=== PATIENT | female | born 1940 | race Asian ===

== ENCOUNTER 2019-03-26 22:04 | Inpatient (IN) | payer MEDICARE ==
[~2019-03-26] VITALS: Ht 149.9 cm; Wt 77.6 kg
[2019-03-26 05:00] VITALS: BP 108/47
[2019-03-26] MEDS ORDERED: PANTOPRAZOLE 40 MG 10ML VIAL IV STA (22:18)
[2019-03-26] MEDS ORDERED: DICYCLOMINE HCL 20 MG/2 ML VIAL IM ONE (22:30)
[2019-03-26 23:24] LABS: BASOPHILS % 0.2 % (0.0-1.0); BILIRUBIN,URINE NEGATIVE (NEGATIVE); CLARITY,URINE CLOUDY (CLEAR); COLOR,URINE YELLOW (YELLOW); EOSINOPHILS # (AUTO) 0.1 (0.0-0.4); EOSINOPHILS % 0.7 % (0.0-6.0); HEMATOCRIT 40.5 % (34.2-44.1); HEMOGLOBIN 13.7 g/dL (12.0-16.0); KETONES,URINE NEGATIVE (NEGATIVE); LYMPHOCYTES # (AUTO) 0.6 (1.0-3.2); LYMPHOCYTES % 6.7 % (18.0-39.1); MEAN CORPUSCULAR HEMOGLOBIN 32.5 pg (28-32); MEAN CORPUSCULAR HGB CONC 33.8 g/dL (31-35); MEAN CORPUSCULAR VOLUME 96.2 fL (81-99); MONOCYTES # (AUTO) 0.2 (0.2-0.8); MONOCYTES % 2.4 % (4.4-11.3); NEUTROPHILS # (AUTO) 7.5 (2.1-6.9); NEUTROPHILS % 89.6 % (38.7-80.0); NITRITE,URINE NEGATIVE (NEGATIVE); PLATELET COUNT 198 x10e3/uL (140-360); RED BLOOD COUNT 4.21 x10e6/uL (3.6-5.1); RED CELL DISTRIBUTION WIDTH 12.7 % (11.7-14.4); URINE UROBILINOGEN 0.2 mg/dL (0.2 - 1)
[2019-03-26 23:28] LABS: LEUKOCYTE ESTERASE ,URINE SMALL (NEGATIVE); PROTEIN,URINE DIPSTICK 3+ (NEGATIVE)
[2019-03-26 23:29] LABS: BACTERIA,URINE MANY /HPF; EPITHELIAL CELLS,URINE FEW /LPF
[2019-03-26 23:41] LABS: ALANINE AMINOTRANSFERASE 15 IU/L (0-55); ALBUMIN 3.4 g/dL (3.5-5.0); ALBUMIN/GLOBULIN RATIO 1.1 (0.8-2.0); ALKALINE PHOSPHATASE 62 IU/L (40-150); AMYLASE 71 U/L (25-125); ANION GAP 13.8 mmol/L (8-16); BLOOD UREA NITROGEN 17 mg/dL (7-26); BUN/CREATININE RATIO 19 (6-25); CALCIUM 9.5 mg/dL (8.4-10.2); CARBON DIOXIDE 25 mmol/L (22-29); CHLORIDE 99 mmol/L (98-107); CREATINE KINASE 68 IU/L (29-168); CREATININE, SERUM 0.88 mg/dL (0.57-1.11); EST GLOMERULAR FILTRATION RATE > 60 ML/MIN (60-); GLUCOSE 104 mg/dL (74-118); LIPASE 32 U/L (8-78); POTASSIUM 3.8 mmol/L (3.5-5.1); SODIUM 134 mmol/L (136-145)
--- NOTE | 2019-03-26 23:42 | Diagnostic Imaging Report ---
EXAMINATION: CHEST SINGLE (PORTABLE) INDICATION: ^ruq pain ^[id number] ^2318 ^Y COMPARISON: None FINDINGS: AP view TUBES and LINES: None. LUNGS: Lungs are well inflated. Central vascular congestion. Left basilar opacity dilatation. PLEURA: No pneumothorax. HEART AND MEDIASTINUM: The cardiomediastinal silhouette is enlarged on this AP view. BONES AND SOFT TISSUES: No acute osseous lesion. Soft tissues are unremarkable. UPPER ABDOMEN: No free air under the diaphragm. IMPRESSION: Central vascular congestion. Left basilar opacification, representing small effusion/atelectasis and/or pneumonia in the appropriate clinical context. Signed by: Dr. Jose M Elizabeth MD on 03/26/2019 11:39 PM
[2019-03-26 23:50] LABS: CREATINE KINASE MB < 1.00 ng/mL (0-4.3)
[2019-03-27] MEDS ORDERED: SODIUM CHLORIDE 0.9% 1000ML 1,000 ML IV SCH (01:00)
[2019-03-27] MEDS ORDERED: SODIUM CHLORIDE 0.9% 1000ML 1,000 ML IV ONE (01:45)
--- NOTE | 2019-03-27 02:42 | Diagnostic Imaging Report ---
EXAM: CT Abdomen and Pelvis WITH contrast INDICATION: ^ABD PAIN ^[id number] ^0138 ^Y COMPARISON: None. TECHNIQUE: Abdomen and pelvis were scanned utilizing a multidetector helical scanner from the lung base to the pubic symphysis after administration of IV contrast. Coronal and sagittal reformations were obtained. Dose modulation, iterative reconstruction, and/or weight based adjustment of the mA/kV was utilized to reduce the radiation dose to as low as reasonably achievable. Routine protocol was performed. Scan was performed when during portal venous phase. IV CONTRAST: 100 mL of Isovue-370 ORAL CONTRAST: None. COMPLICATIONS: None RADIATION DOSE: Total DLP: 376.15 mGy*cm Estimated effective dose: (DLP x 0.015 x size factor) mSv CTDIvol has been reviewed. It is below the limits set by the Radiation Protocol Committee (RPC). FINDINGS: LINES and TUBES: None. LOWER THORAX: Mild bibasilar atelectasis. HEPATOBILIARY: No focal hepatic lesions. No biliary ductal dilation. GALLBLADDER: No radio-opaque stones or sludge. No wall thickening. SPLEEN: No splenomegaly. PANCREAS: No focal masses or ductal dilatation. ADRENALS: No adrenal nodules KIDNEYS/URETERS: Kidneys enhance symmetrically. No hydronephrosis. No cystic or solid mass lesions. Bilateral subcentimeter hypodensities are too small to characterize. No stones. GI TRACT: No abnormal distention or evidence of bowel obstruction. Left lower quadrants diverticulitis with adjacent extraluminal air. Appendix is normal. Increased amount of air adjacent to the third and fourth portion of the duodenum (series 2, image 28). PELVIC ORGANS/BLADDER: Unremarkable. LYMPH NODES: No lymphadenopathy. VESSELS: Unremarkable. PERITONEUM / RETROPERITONEUM: No free air. Pneumoperitoneum, which is more in the upper abdomen than around the colon. BONES: L4-L5 degenerative changes. SOFT TISSUES: Unremarkable. IMPRESSION: 1. Perforated diverticulitis. 2. More pronounced upper abdominal free air, raises the possibility of another concomitant process such as perforated distal duodenal ulcer. Findings discussed with Dr. Oliver at 2:30 AM, on 04/08/2019. Signed by: Dr. Jose M Elizabeth MD on 03/27/2019 2:38 AM
[2019-03-27 02:46] LABS: INR 0.87; PROTHROMBIN TIME 12.3 seconds (11.9-14.5)
[2019-03-27 02:47] LABS: PARTIAL THROMBOPLASTIN TIME 28.7 seconds (23.8-35.5)
[2019-03-27] MEDS ORDERED: ONDANSETRON HCL INJ 2MG/ML 2ML 2 MG/ML VIAL IV PRN (03:00)
[2019-03-27] MEDS ORDERED: MORPHINE SULFATE INJ 4 MG/ML INJ 1ML IV PRN (03:00)
--- OUTSIDE RECORDS SUMMARY | 2019-03-27 03:07 | XMS REPORT ---
Author [facility] Address Unknown Phone Unavailable Care Team Providers Care Quarantine Officer Name Role Phone David AGUAYO Unavailable Unavailable Problems This patient has no known problems. Allergies, Adverse Reactions, Alerts This patient has no known allergies or adverse reactions. Medications This patient has no known medications. Results Test Description Test Time Test Comments Text Results Atomic Results Result Comments CT ABDOMEN/PELVIS W 2019-03-27 02:27:00 [facility] [address], [place] [address] Patient Name: LENIN PLAZA MR #: [id number] : 1940 Age/Sex: 78/F Req #: [id number] Adm Physician: Ordered by: CORTEZ AGUAYO MD Report #: [id number] Location: ER Room/Bed: Procedure: [id number] CT/CT ABDOMEN/PELVIS W Exam Date: 03/27/19 Exam Time: 137 REPORT STATUS: Signed EXAM: CT Abdomen and Pelvis WITH contrast INDICA TION: ABD PAIN [id number] Y COMPARISON: None. TECHNIQUE: Abdomen and pelvis were scanned utilizing a multidetector helical scanner from the lung base to the pubic symphysis after administration of IV contrast. Coronal and sagittal reformations were obtained. Dose modulation, iterative reconstruction, and/or weight based adjustment of the mA/kV was utilized to reduce the radiation dose to as low as reasonably achievable. Routine protocol was performed. Scan was performed when during portal venous phase. IV CONTRAST: 100 mL of Isovue-370 ORAL CONTRAST: None. COMPLICATIONS: None RADIATION DOSE: Total DLP: 376.15 mGy*cm Estimated effective dose: (DLP x 0.015 x size factor) mSv CTDIvol has been reviewed. It is below the limits set by the Radiation Protocol Committee (RPC). FINDINGS: LINES and TUBES: None. LOWER THORAX: Mild bibasilar atelectasis. HEPATOBILIARY: No focal hepatic lesions. No biliary ductal dilation. GALLBLADDER: No radio-opaque stones or sludge. No wall thickening. SPLEEN: No splenomegaly. PANCREAS: No focal masses or ductal dilatation. ADRENALS: No adrenal nodules KIDNEYS/URETERS: Kidneys enhance symmetrically. No hydronephrosis. No cystic or solid mass lesions. Bilateral subcentimeter hypodensities are too small to characterize. No stones. GI TRACT: No abnormal distention or evidence of bowel obstruction. Left lower quadrants diverticulitis with adjacent extraluminal air. Appendix is normal. Increased amount of air adjacent to the third and fourth portion of the duodenum (series 2, image 28). PELVIC ORGANS/BLADDER: Unremarkable. LYMPH NODES: No lymphadenopathy. VESSELS: Unremarkable. PERITONEUM / RETROPERITONEUM: No free air. Pneumoperitoneum, which is more in the upper abdomen than around the colon. BONES: L4-L5 degenerative changes. SOFT TISSUES: Unremarkable. IMPRESSION: 1. Perforated diverticulitis. 2. More pronounced upper abdominal free air, raises the possibility of another concomitant process such as perforated distal duodenal ulcer. Findings discussed with Dr. Aguayo at 2:30 AM, on 04/08/2019. Signed by: Dr. Jose M Kasper MD on 03/27/2019 2:38 AM Dictated By: JOSE M KASPER MD 7 Transcribed By: MOUSTAPHA on 03/27/19237 COPY TO: CORTEZ AGUAYO MD CHEST SINGLE (PORTABLE) 2019-03-26 23:37:00 [place] [address] Patient Name: LENIN PLAZA MR #: [id number] : 1940 Age/Sex: 78/F Req #: [id number] Adm Physician: Ordered by: CORTEZ AGUAYO MD Report #: [id number] Location: ER Room/Bed: Procedure: [id number] DX/CHEST SINGLE (PORTABLE) Exam Date: 03/26/19 Exam Time: 2317 REPORT STATUS: Signed EXAMINATION: CHEST SINGLE (PORTABLE) I NDICATION: ruq pain [id number] Y COMPARISON: None FINDINGS: AP view TUBES and LINES: None. LUNGS: Lungs are well inflated. Central vascular congestion. Left basilar opacity dilatation. PLEURA: No pneumothorax. HEART AND MEDIASTINUM: The cardiomediastinal silhouette is enlarged on this AP view. BONES AND SOFT TISSUES: No acute osseous lesion. Soft tissues are unremarkable. UPPER ABDOMEN: No free air under the diaphragm. IMPRESSION: Central vascular congestion. Left basilar opacification, representing small effusion/atelectasis and/or pneumonia in the appropriate clinical context. Signed by: Dr. Jose M Kasper MD on 03/26/2019 11:39 PM Dictated By: JOSE M KASPER MD Transcribed By: MOUSTAPHA on 03/26/192338 COPY TO: CORTEZ AGUAYO MD
[2019-03-27] MEDS ORDERED: PIPER-TAZ 3.375 GM 50 ML IV SCH ×2 (03:15→12:00)
[2019-03-27] MEDS ORDERED: METRONIDAZOLE 500MG/NS 100ML 100 ML IV SCH (03:15)
[2019-03-27] MEDS: SODIUM CHLORIDE 0.9% 1000ML 1,000 ML IV SCH ×4 (03:34→22:58)
[2019-03-27] MEDS ORDERED: ACETAMINOPHEN 1000 MG/100 ML IV PRN (04:30)
--- NOTE | 2019-03-27 04:50 | NUR ---
Pt received to [place] [id number]. Daughter with pt. Personal possessions with the daughter. Pt/ daughter oriented to room, call light, plan of care, etc. No current complication noted. Pt is a/o x3, states no nausea, the pain is decreased and tolerable at this time. Pt is NPO as Dr Ha has been notified by ER of consult. Will monitor.
[2019-03-27] MEDS ORDERED: IOPAMIDOL 370 MG/ML 200 ML INFUS..BTL INJ ONE (06:29)
[2019-03-27] MEDS ORDERED: SODIUM CHLORIDE 0.9% 50ML 50 ML ONE (06:29)
[2019-03-27 06:45] LABS: BASOPHILS % 0.1 % (0.0-1.0); HEMATOCRIT 35.4 % (34.2-44.1); HEMOGLOBIN 11.8 g/dL (12.0-16.0); LYMPHOCYTES # (AUTO) 0.6 (1.0-3.2); LYMPHOCYTES % 5.6 % (18.0-39.1); MEAN CORPUSCULAR HEMOGLOBIN 32.3 pg (28-32); MEAN CORPUSCULAR HGB CONC 33.3 g/dL (31-35); MONOCYTES # (AUTO) 0.3 (0.2-0.8); MONOCYTES % 2.7 % (4.4-11.3); NEUTROPHILS % 91.1 % (38.7-80.0); PLATELET COUNT 197 x10e3/uL (140-360); RED BLOOD COUNT 3.65 x10e6/uL (3.6-5.1); RED CELL DISTRIBUTION WIDTH 12.9 % (11.7-14.4)
[2019-03-27 07:10] VITALS: BP 94/44
--- NOTE | 2019-03-27 07:20 | NUR ---
Pt received resting in bed. Alert and oriented x4. Admission assessment done. Emotional support given. Pt is NPO due to diagnosis. Oriented to staff and surroundings. Encouraged to press call perales if help needed. Emotional support given. Will monitor
--- NOTE | 2019-03-27 09:40 | NUR ---
Pt taken off unit for Abdominal series
--- NOTE | 2019-03-27 10:20 | NUR ---
Pt returned from Abd series. Will monitor
[2019-03-27] MEDS: PIPER-TAZ 3.375 GM 50 ML IV SCH ×3 (10:24→16:30)
[2019-03-27] MEDS: METRONIDAZOLE 500MG/NS 100ML 100 ML IV SCH ×3 (10:24→22:00)
--- NOTE | 2019-03-27 10:25 | Diagnostic Imaging Report ---
EXAM: Abdomen 3 Views INDICATION: ^perforated sig diverticulitis ^[id number] ^0958 ^Y COMPARISON: CT abdomen and pelvis 03/27/2019 FINDINGS: Lines/tubes: None. Mild of stool in the colon. No dilated loops of small bowel. Curvilinear lucency through the left L4 vertebral body may correlate with a free air noted on earlier CT abdomen and pelvis. No renal calculi. No abnormal soft tissue masses. Moderate degenerative changes in the lumbar spine and pelvis. Retained contrast in the urinary bladder. IMPRESSION: 1. Possible residual mild free air in the left lower quadrant. 2. Nonobstructive bowel gas pattern. Signed by: Dr. Bibiana Zepeda M.D. on 03/27/2019 10:22 AM
--- NOTE | 2019-03-27 10:45 | NUR ---
Pt taken for CT abdomen
[2019-03-27] MEDS ORDERED: DIATRIZOATE MEGL/DIATRIZOA SOD 30 ML BTL PO ONE (11:00)
--- NOTE | 2019-03-27 11:31 | Consultation ---
DATE OF CONSULTATION: 03/27/2019 REASON FOR CONSULTATION: Perforated sigmoid diverticulitis. HISTORY OF PRESENT ILLNESS: The patient is a pleasant 78-year-old female, who speaks limited Tajik, is not a very good historian, who came to the emergency room yesterday because she had developed severe abdominal pain that had developed after eating dinner last night. Because of the above, she came to the emergency room. The patient had been having on and off abdominal pains which were described as localized in the mid abdominal area and associated with ingestion of foods. She was evaluated by her primary care physician, Dr. Wall, who apparently ordered an ultrasound of the right upper quadrant that revealed some gallbladder polyps. The patient also complained of some milky looking urine. While in the emergency room, the patient had a CT scan of the abdomen that revealed a perforated sigmoid diverticulitis with air in the right upper quadrant raising the possibility of a perforated gastroduodenal ulcer. The patient has difficulty localizing the pain. She sort of describes it as being diffuse. There has been no vomiting. No diarrhea. PAST MEDICAL HISTORY: Significant for arthritis. She is taking meloxicam. She has high blood pressure. She does not know the name of blood pressure medicine. She denies any abdominal surgery. FAMILY HISTORY: Noncontributory. ALLERGIES: SHE HAS NO KNOWN ALLERGIES. REVIEW OF SYSTEMS: Significant for what has been stated. PHYSICAL EXAMINATION: GENERAL: Reveals a 78-year-old oriental female, lying in bed. She is in no acute distress. VITAL SIGNS: Blood pressure is 94/44, pulse is 67, and temperature 99. HEAD, HEAD, EYES, EARS, NOSE, AND THROAT: Reveals no acute process. LUNGS: Clear. HEART: Reveals a regular sinus rhythm. ABDOMEN: Reveals a soft abdomen with diffuse tenderness. Plus or minus rebound, but no guarding. Bowel sounds are present in all four quadrants. EXTREMITIES: Reveal no clubbing, cyanosis, or edema. IMPRESSION: Perforated sigmoid diverticulitis with a questionable perforation of the gastric or duodenal ulcer as a differential diagnosis. The plan is to repeat a CT scan of the abdomen and pelvis with oral Gastrografin enema to try to further evaluate the possibility of a gastric or duodenal perforation. This morning she had an abdominal acute series that revealed possibly a small amount of air in the left lower quadrant consistent with the impression by CT of the diverticulitis. The patient has also been hydrated and given intravenous antibiotics with Zosyn and Flagyl. We will be carefully following the patient up for the need of laparotomy. This has been discussed with her and her daughter and they both agree. The history was taken with her daughter at bedside also. MD REKHA Ward/YANDEL /[id number]
[2019-03-27 11:55] VITALS: BP 101/63
--- NOTE | 2019-03-27 12:20 | NUR ---
Pt returned from CT scan
[2019-03-27 12:28] LABS: BILIRUBIN,URINE NEGATIVE (NEGATIVE); COLOR,URINE YELLOW (YELLOW); KETONES,URINE NEGATIVE (NEGATIVE); LEUKOCYTE ESTERASE ,URINE NEGATIVE (NEGATIVE); NITRITE,URINE NEGATIVE (NEGATIVE); PROTEIN,URINE DIPSTICK 2+ (NEGATIVE); URINE UROBILINOGEN 0.2 mg/dL (0.2 - 1)
[2019-03-27 12:35] LABS: CLARITY,URINE HAZY (CLEAR)
[2019-03-27 12:40] LABS: BACTERIA,URINE FEW /HPF; EPITHELIAL CELLS,URINE FEW /LPF; RBC,URINE >50 /HPF (0-5); WBC,URINE (MAN) 0-5 /HPF (0-5)
[2019-03-27 12:41] LABS: MUCUS,URINE FEW (RARE)
--- NOTE | 2019-03-27 12:54 | Diagnostic Imaging Report ---
EXAM: CT Abdomen and Pelvis WITHOUT contrast INDICATION: ^perf appy r/o per duodenal ulcer ^[id number] ^1158 ^Y COMPARISON: None. TECHNIQUE: Abdomen and pelvis were scanned utilizing a multidetector helical scanner from the lung base to the pubic symphysis without administration of IV contrast. Absence of intravenous contrast decreases sensitivity for detection of focal lesions and vascular pathology. Coronal and sagittal reformations were obtained. Routine protocol was performed. IV CONTRAST: None. ORAL CONTRAST: Gastrografin RADIATION DOSE: Total DLP: 521.5 mGy*cm Estimated effective dose: (DLP x 0.015 x size factor) mSv COMPLICATIONS: None FINDINGS: LINES and TUBES: None. LOWER THORAX: Mild scarring in the lingula and left lower lobe. HEPATOBILIARY: No focal hepatic lesions. No biliary ductal dilation. GALLBLADDER: No radio-opaque stones or sludge. No wall thickening. SPLEEN: No splenomegaly. PANCREAS: There is hypodensity of the pancreatic head with surrounding mild fat stranding which may reflect inflammatory changes from adjacent inflammation of the duodenum. ADRENALS: No adrenal nodules KIDNEYS/URETERS: No hydronephrosis. No cystic or solid mass lesions. No stones. GI TRACT: Diffuse wall thickening of the stomach may be overestimated by poor distention, unchanged. Interval decrease in size of the multiple foci of free air. Few foci are still present in the right upper quadrant and left flank. Diffuse wall thickening of the duodenum and multiple loops of small bowel, which are mildly distended and suggestive of ileus. No abscess or free fluid. Extensive diverticulosis throughout the sigmoid colon. Interval development of diffuse wall thickening of the cecum and distal ascending colon. Short air-filled tubular structure in the right lower quadrant arising from the cecum, which appears to represent a short appendix versus a large diverticulum on series 2, images 41 and 42. PELVIC ORGANS/BLADDER: Unremarkable. LYMPH NODES: No lymphadenopathy. VESSELS: Unremarkable. PERITONEUM / RETROPERITONEUM: Residual few foci of free air in the left flank and right upper quadrant. BONES: Moderate degenerative changes at L4-L5. SOFT TISSUES: Unremarkable. IMPRESSION: 1. Interval decreased amount of free air in the abdomen with residual few foci of free air in the right upper quadrant and left flank still present. 2. Diffuse inflammatory changes involving multiple loops of small bowel and ascending colon. No bowel obstruction. 3. Ill-defined hypodensity in the pancreatic head may relate to inflammation. 4. No drainable fluid collections or abscesses. Signed by: Dr. Bibiana Zepeda M.D. on 03/27/2019 12:51 PM
[2019-03-27] MEDS ORDERED: PANTOPRAZOL 40MG/SOD CHL 0.9% 50 ML IV SCH (14:00)
[2019-03-27 16:00] VITALS: BP 91/43
--- NOTE | 2019-03-27 17:30 | NUR ---
All meds given as ordered. Call pearles within reach. Will monitor
[2019-03-27 18:00] VITALS: BP 102/50
[2019-03-27 19:47] VITALS: BP 102/50
[2019-03-27 19:54] VITALS: BP 93/56
--- NOTE | 2019-03-27 20:53 | History and Physical ---
CHIEF COMPLAINT: Worsening abdominal pain. HISTORY OF PRESENT ILLNESS: This is a 78-year-old Lithuanian woman who presents to [facility] with sudden onset of intense lower abdominal pain. In the emergency room, the patient was found to have a white blood cell count 8400 with 89% segmented neutrophils. The patient's urine also revealed cloudy yellow urine, 3+ protein, 11-20 red blood cells per high-power field, 6-10 white blood cells per high-power field, and many bacteria. The patient is found to have BUN and creatinine of 17 and 0.88 respectively. The patient's amylase, lipase were normal at 71, 32 respectively. The patient underwent a CT of the abdomen and pelvis in the emergency room because right before discharge, she experienced episode of hypotension. The CT of the abdomen and pelvis revealed a perforated diverticulitis with evidence of upper abdominal free air. The patient was thus admitted for further evaluation and treatment. The adult daughter states over the last two months, the patient has had recurrent urinary tract infections. In fact, at times, her urine has been whitish in color with obvious sediment. The patient also has difficulty in voiding according to her daughter. The patient at times has difficulty initiating urination and completely emptying her bladder. REVIEW OF SYSTEMS: GENERAL: She lost 10 pounds in last two months. She has had intermittent fever, chills. HEENT: No headaches. No vision changes. CARDIOVASCULAR/RESPIRATORY: No chest pain or cough. GI: No nausea, vomiting, or diarrhea with intense lower abdominal pain which began yesterday. : Recurrent urinary tract infections as well as white colored urine with obvious sediment last two months according to adult daughter. Neuromuscular no limb weakness or numbness. No known drug allergies. Past history hypertension. SOCIAL HISTORY: This woman is a , lives alone. Her adult daughter lives nearby and visits her frequently. The patient smokes tobacco. Denies alcohol use. FAMILY HISTORY: Noncontributory with the patient's mother is still living, is [id number]. PAST SURGICAL HISTORY: 1. Cataract surgery. 2. Bilateral lower leg venous ablation. 3. Left breast lumpectomy (benign). HOME MEDICATIONS: 1. Losartan daily. 2. Meloxicam as needed for arthritic pain. PHYSICAL EXAMINATION: GENERAL: She is awake, alert, fluent, in no distress, very pleasant. The patient speaks minimal Tanzanian per daughter, who is at bedside. VITAL SIGNS: Height 4 feet 11 inches, weight 160 pounds, BMI 32. Blood pressure is 100/60, pulse 64, respiratory rate 16, temperature 98.1. Temperature last night got as high as 99.6, oxygen saturation 99% on room air. INTEGUMENT: Skin is warm and dry. No pallor, jaundice, or diaphoresis. HEENT: Anicteric sclerae. Moist mucous membranes. CARDIOVASCULAR: Regular rate and rhythm. LUNGS: No rales. No rhonchi or wheezes. ABDOMEN: Soft. She has exquisite tenderness in the right lower quadrant area. She actually has guarding. She also has tenderness in the right upper quadrant. Negative Can sign. EXTREMITIES: No deformity. NEUROLOGIC: Intact. DIAGNOSES: 1. Perforated sigmoid diverticulitis, likely. 2. Urinary tract infection. 3. Hypertensive heart disease. PLAN: 1. We will stop all NSAIDs. 2. Nothing by mouth. 3. Intravenous fluids. 4. Intravenous antibiotics. 5. I appreciate General surgery's input. I agree with repeating the CT of the abdomen pelvis to see if the free air in the abdomen is worsening. I spent 35 minutes in the care of this patient. MD RAVINDER Bajwa/YANDEL /[id number] MTDD
--- NOTE | 2019-03-27 21:28 | NUR ---
RECEIVED PT IN BED AOX3 .RESPIRATIONS ARE EVEN AND UNLABORED .DENIES ABD PAIN NOW LEFT AC 20G PT IS GETTING NS AT150 C/HR .FAMILY AT THE BEDSIDE CALL LIGHT WITH IN REACH .CONTINUE TO MONITOR .
[2019-03-28] VITALS: BP 111/54
[2019-03-28 00:43] VITALS: BP 111/54
[2019-03-28] MEDS: PANTOPRAZOL 40MG/SOD CHL 0.9% 50 ML IV SCH ×5 (02:30→22:00)
[2019-03-28 04:00] VITALS: BP 104/48
[2019-03-28] MEDS: METRONIDAZOLE 500MG/NS 100ML 100 ML IV SCH ×4 (04:04→22:00)
[2019-03-28 05:03] LABS: BASOPHILS % 0.1 % (0.0-1.0); EOSINOPHILS % 0.1 % (0.0-6.0); HEMATOCRIT 32.9 % (34.2-44.1); HEMOGLOBIN 10.9 g/dL (12.0-16.0); LYMPHOCYTES # (AUTO) 0.6 (1.0-3.2); LYMPHOCYTES % 6.8 % (18.0-39.1); MEAN CORPUSCULAR HEMOGLOBIN 32.5 pg (28-32); MEAN CORPUSCULAR HGB CONC 33.1 g/dL (31-35); MEAN CORPUSCULAR VOLUME 98.2 fL (81-99); MONOCYTES # (AUTO) 0.2 (0.2-0.8); MONOCYTES % 2.2 % (4.4-11.3); NEUTROPHILS # (AUTO) 8.1 (2.1-6.9); NEUTROPHILS % 90.6 % (38.7-80.0); PLATELET COUNT 168 x10e3/uL (140-360); RED BLOOD COUNT 3.35 x10e6/uL (3.6-5.1); RED CELL DISTRIBUTION WIDTH 13.2 % (11.7-14.4)
[2019-03-28 05:21] LABS: ALANINE AMINOTRANSFERASE 16 IU/L (0-55); ALBUMIN 2.5 g/dL (3.5-5.0); ALBUMIN/GLOBULIN RATIO 1.1 (0.8-2.0); ALKALINE PHOSPHATASE 42 IU/L (40-150); ANION GAP 8.4 mmol/L (8-16); BLOOD UREA NITROGEN 9 mg/dL (7-26); BUN/CREATININE RATIO 13 (6-25); CALCIUM 8.1 mg/dL (8.4-10.2); CARBON DIOXIDE 21 mmol/L (22-29); CHLORIDE 113 mmol/L (98-107); CREATININE, SERUM 0.68 mg/dL (0.57-1.11); EST GLOMERULAR FILTRATION RATE > 60 ML/MIN (60-); GLUCOSE 90 mg/dL (74-118); POTASSIUM 3.4 mmol/L (3.5-5.1); SODIUM 139 mmol/L (136-145)
[2019-03-28 05:33] LABS: AMYLASE 39 U/L (25-125); LIPASE 16 U/L (8-78)
[2019-03-28] MEDS: SODIUM CHLORIDE 0.9% 1000ML 1,000 ML IV SCH (06:32)
[2019-03-28] MEDS: PIPER-TAZ 3.375 GM 50 ML IV SCH ×4 (06:32→18:00)
--- NOTE | 2019-03-28 06:33 | NUR ---
PT RESTED DURING THE NIGHT DENIES PAIN .PT HAD 2XBM .CALL LIGHT WITH IN REACH.CONTINUE TO MONITOR
--- NOTE | 2019-03-28 07:19 | NUR ---
REPORT GIVEN TO THE ONCOMING NURSE
[2019-03-28 07:20] VITALS: BP 101/44
--- NOTE | 2019-03-28 07:20 | NUR ---
Pt received s/p Abdominal series. Emotional support given. Assisted with care. Oriented to staff and surroundings. Will monitor
--- NOTE | 2019-03-28 07:21 | Diagnostic Imaging Report ---
EXAM: Abdomen and chest 3 radiographs INDICATION: ^fu pneumoperitoneum COMPARISON: KUB and CT dated 03/27/2019 FINDINGS: Limited by body habitus. Dilated small bowel loops are seen in the upper abdomen. No definite radiographic evidence of pneumoperitoneum. Degenerative changes of spine. Left lung base hazy opacification, representing small effusion/atelectasis and/or pneumonia. IMPRESSION: 1. Gaseous distention of few small bowel loops in the upper abdomen is nonspecific, however early/developing obstruction cannot be entirely excluded. 2. No definite radiographic evidence of pneumoperitoneum. 3. Left lung base hazy opacification, representing small effusion/atelectasis and/or pneumonia. Signed by: Dr. Jose M Elizabeth MD on 03/28/2019 7:18 AM
--- NOTE | 2019-03-28 09:00 | NUR ---
Meds given as ordered. Emotional support given. Vitals stable. Will monitor
[2019-03-28] MEDS ORDERED: BISACODYL 10 MG SUPP PR NR (11:45)
[2019-03-28] MEDS: KCL 20MEQ/.9 SOD CHL 1,000 ML IV SCH ×2 (13:30→22:00)
[2019-03-28 16:20] VITALS: BP 115/56
--- NOTE | 2019-03-28 19:28 | NUR ---
Awaiting call back from Dr Shagufta hyde orders. Spoke with Moises with answering service
--- NOTE | 2019-03-28 19:47 | NUR ---
Return call from Dr Eagle: patient can be downgraded to med/surg
[2019-03-28 20:00] VITALS: BP 113/54
[2019-03-29] VITALS (7 sets, daily range): BP systolic 103–126; BP diastolic 53–59
--- NOTE | 2019-03-29 02:24 | NUR ---
Report given to Elly Soto RN. Patient stable, A&Ox3. No issues or concerns. Call light within reach.
[2019-03-29] MEDS: PIPER-TAZ 3.375 GM 50 ML IV SCH ×4 (02:27→17:10)
[2019-03-29] MEDS: PANTOPRAZOL 40MG/SOD CHL 0.9% 50 ML IV SCH ×4 (03:17→21:15)
[2019-03-29] MEDS: METRONIDAZOLE 500MG/NS 100ML 100 ML IV SCH ×4 (03:55→21:18)
[2019-03-29 06:18] LABS: BASOPHILS % 0.2 % (0.0-1.0); EOSINOPHILS % 0.2 % (0.0-6.0); HEMATOCRIT 33.9 % (34.2-44.1); HEMOGLOBIN 11.2 g/dL (12.0-16.0); LYMPHOCYTES # (AUTO) 0.7 (1.0-3.2); LYMPHOCYTES % 8.4 % (18.0-39.1); MEAN CORPUSCULAR HEMOGLOBIN 31.9 pg (28-32); MEAN CORPUSCULAR VOLUME 96.6 fL (81-99); MONOCYTES # (AUTO) 0.3 (0.2-0.8); NEUTROPHILS # (AUTO) 7.1 (2.1-6.9); NEUTROPHILS % 86.8 % (38.7-80.0); PLATELET COUNT 204 x10e3/uL (140-360); RED BLOOD COUNT 3.51 x10e6/uL (3.6-5.1); RED CELL DISTRIBUTION WIDTH 13.1 % (11.7-14.4)
[2019-03-29 06:46] LABS: ANION GAP 11.7 mmol/L (8-16); BLOOD UREA NITROGEN 11 mg/dL (7-26); BUN/CREATININE RATIO 15 (6-25); CALCIUM 8.2 mg/dL (8.4-10.2); CARBON DIOXIDE 17 mmol/L (22-29); CHLORIDE 114 mmol/L (98-107); CREATININE, SERUM 0.71 mg/dL (0.57-1.11); EST GLOMERULAR FILTRATION RATE > 60 ML/MIN (60-); GLUCOSE 65 mg/dL (74-118); MAGNESIUM 1.9 MG/DL (1.3-2.1); POTASSIUM 3.7 mmol/L (3.5-5.1); SODIUM 139 mmol/L (136-145)
[2019-03-29 06:47] LABS: ALANINE AMINOTRANSFERASE 15 IU/L (0-55); ALBUMIN 2.5 g/dL (3.5-5.0); ALBUMIN/GLOBULIN RATIO 0.9 (0.8-2.0); ALKALINE PHOSPHATASE 50 IU/L (40-150); ANION GAP 10.7 mmol/L (8-16); BLOOD UREA NITROGEN 11 mg/dL (7-26); BUN/CREATININE RATIO 16 (6-25); CALCIUM 8.3 mg/dL (8.4-10.2); CARBON DIOXIDE 18 mmol/L (22-29); CHLORIDE 114 mmol/L (98-107); EST GLOMERULAR FILTRATION RATE > 60 ML/MIN (60-); GLUCOSE 65 mg/dL (74-118); POTASSIUM 3.7 mmol/L (3.5-5.1); SODIUM 139 mmol/L (136-145)
--- NOTE | 2019-03-29 07:00 | NUR ---
Walking rounds done and report received. Patient is resting in bed in NAD. Currently NPO. POC discussed. Call perales within reach.
[2019-03-29] MEDS: KCL 20MEQ/.9 SOD CHL 1,000 ML IV SCH ×2 (08:00→22:22)
--- NOTE | 2019-03-29 10:04 | Progress Note ---
DATE: 03/29/2019 SUBJECTIVE: Ms. Correa is a 78-year-old [place] lady, who speaks limited Mexican. Apparently, she started having abdominal pain after eating that became severe. Apparently, she has been having recurrent episodes of abdominal pain on and off, had an ultrasound done in the office that shows gallbladder polyps, came to the emergency room because the abdominal pain was severe. CAT scan shows probable perforated sigmoid diverticulitis with air in the right upper quadrant with also the possibility of perforated gastroduodenal ulcer, so the patient was admitted to [facility]. She is on IV antibiotics and she is n.p.o. PHYSICAL EXAMINATION: GENERAL: Today, she is awake and alert. She is feeling better. VITAL SIGNS: Temperature is 98.7, blood pressure is 114/56. HEART: Regular rate. LUNGS: Clear to auscultation. ABDOMEN: Distended and soft with mild epigastric and right upper quadrant tenderness. LABORATORY DATA: On the blood work, white count 8.20, hemoglobin is 11.2, hematocrit 33.9. Potassium 3.7 today, creatinine is 0.70. Glucose is 65. PT/INR normal. Urine show at the beginning 6-10 white blood cells. Urine culture is negative. CAT scan of the abdomen and pelvic CT of the abdomen on admission show perforated diverticulitis, pronounced upper abdominal free air that raises a possibility of perforated distal duodenal ulcer. The repeated CT of the abdomen show interval decreased amount of free air in the abdomen with some free air in the right upper quadrant and left flank. Diffuse inflammatory changes involving multiple loops of small bowel and ascending colon. Ill-defined hypodensity in the pancreatic head that might be related to inflammation. No abscess at present. ASSESSMENT: 1. Perforated sigmoid diverticulitis. 2. Possible urinary tract infection, even though white count normal and urine culture has been negative. 3. Possibility of perforated gastroduodenal ulcer. 4. Hypertension. 5. Hypokalemia, resolved. PLAN: The plan at the present time with this patient is the patient was seen by GI, but we have to wait 4 weeks for endoscopy as per Dr. Sean Corbin. She is also being followed up by a surgeon closely for any need of laparotomy. She is n.p.o. She is on IV antibiotics. We will continue to monitor her. The prognosis remains guarded. I spent more than 35 minutes examining patient, reviewing weekends lab results, x-rays, CTs, and discussing plan of care with her. All these was discussed with the patient. All questions were answered to satisfaction. MD REMEDIOS Joseph/YANDEL /[id number]
--- NOTE | 2019-03-29 10:59 | NUR ---
RECEIVED PATIENT TO ROOM 290 AT THIS TIME. SHE IS IN STABLE CONDITION. NO S/S OF PAIN NOTED. CALL LIGHT WITHIN REACH. BED IN THE LOWEST POSITION.
--- NOTE | 2019-03-29 19:00 | NUR ---
patient received awake, alert, lying quietly in bed. no c/o pain noted. ivf/protonix drip infusing without difficulty. pm assessment complete. family noted at the bedside. patient instructed to call for assistance when needed.
--- NOTE | 2019-03-29 19:23 | NUR ---
REPORT GIVEN TO ONCOMING NURSE, WALKING ROUNDS DONE. PATIENT IS RESTING IN BED. NO ACUTE DISTRESS NOTED. FAMILY MEMBER AT BEDSIDE. CALL LIGHT WITHIN REACH. BED IN THE LOWEST POSITION.
[2019-03-30] VITALS (8 sets, daily range): BP systolic 94–114; BP diastolic 49–55
--- NOTE | 2019-03-30 01:00 | NUR ---
here to see patient. order received to send stool for ob. hat placed in toilet to collect stool. patient had stool in hat but it was combined with urine. patient instructed of need for another stool.
[2019-03-30] MEDS: PANTOPRAZOL 40MG/SOD CHL 0.9% 50 ML IV SCH ×6 (02:30→23:00)
--- NOTE | 2019-03-30 03:00 | NUR ---
iv to left forearm and right ac d/c'd. severe redness noted to right ac site and left forearm iv leaking. new #20 gauge placed to right hand x 1 stick. ivf/iv protonix continue to infuse without difficulty.
--- NOTE | 2019-03-30 03:30 | NUR ---
ice applied to right ac due to redness/swelling. right arm elevated at this time.
[2019-03-30] MEDS: METRONIDAZOLE 500MG/NS 100ML 100 ML IV SCH ×4 (03:43→21:46)
[2019-03-30] MEDS: PIPER-TAZ 3.375 GM 50 ML IV SCH ×4 (05:08→17:23)
[2019-03-30 06:27] LABS: BASOPHILS % 0.4 % (0.0-1.0); EOSINOPHILS # (AUTO) 0.1 (0.0-0.4); EOSINOPHILS % 1.2 % (0.0-6.0); HEMATOCRIT 30.4 % (34.2-44.1); HEMOGLOBIN 10.4 g/dL (12.0-16.0); LYMPHOCYTES # (AUTO) 0.5 (1.0-3.2); LYMPHOCYTES % 10.4 % (18.0-39.1); MEAN CORPUSCULAR HEMOGLOBIN 32.7 pg (28-32); MEAN CORPUSCULAR HGB CONC 34.2 g/dL (31-35); MEAN CORPUSCULAR VOLUME 95.6 fL (81-99); MONOCYTES # (AUTO) 0.3 (0.2-0.8); MONOCYTES % 6.9 % (4.4-11.3); NEUTROPHILS # (AUTO) 3.9 (2.1-6.9); NEUTROPHILS % 80.5 % (38.7-80.0); PLATELET COUNT 178 x10e3/uL (140-360); RED BLOOD COUNT 3.18 x10e6/uL (3.6-5.1)
--- NOTE | 2019-03-30 06:52 | NUR ---
RECEIVED PATIENT RESTING IN BED. NO ACUTE DISTRESS NOTED, RESPIRATIONS EVEN AND UNLABORED, DENIES PAIN OR DISCOMFORT. CALL LIGHT WITHIN REACH. BED IN THE LOWEST POSITION.
--- NOTE | 2019-03-30 10:35 | Progress Note ---
DATE: 03/30/2019 SUBJECTIVE: Ms. Correa is a 78-year-old Hebrew female, who speaks limited Mohawk came today. She has history of hypertension and arthritis, came to the emergency room complaining of severe abdominal pain. She has been having abdominal pain on and off. She was found to have gallbladder polyps. When she came to the emergency room, CAT scan showed perforated sigmoid diverticulitis with some air in the right upper quadrant concerning for perforated gastroduodenal ulcer. She was started on IV PPIs and IV antibiotics and started on clear liquid diet. PHYSICAL EXAMINATION: GENERAL: Today, she is awake and alert. She is feeling better. VITAL SIGNS: Temperature is 97.5, blood pressure 106/53. HEART: Regular rate. LUNGS: Clear to auscultation. ABDOMEN: Distended and soft. LABORATORY DATA: White count is 4.9, hemoglobin is 10.4, hematocrit 30.4. Potassium 3.7, creatinine 0.70, glucose was 65 yesterday. Urine shows 0 to 5 white blood cells the repeat. Urine culture finally came with no growth. Abdominal and pelvic CT showed interval decreased amount of free air in the abdomen, few foci of free air in the right upper quadrant and left flank, diffuse inflammatory changes involving multiple loops of small bowel and ascending colon, ill-defined hypodensity in the pancreatic head and no drainable fluid collection or abscess. ASSESSMENT: 1. Perforated sigmoid diverticulitis. 2. Possible perforated gastroduodenal ulcer. 3. History of hypertension. 4. Hypokalemia, resolved. PLAN: At the present time, the patient is on clear liquid diet. Continue IV PPIs, IV antibiotics and continue to monitor for any recurrent pain or fever. The patient seems to be slowly improving. GI and surgeon following the patient with me. All this was discussed with the patient. All questions were answered to satisfaction. MD REMEDIOS Joseph/YANDEL /[id number]
[2019-03-30] MEDS: HYDROCODONE/APAP 5MG-325MG TAB PO PRN (17:40)
--- NOTE | 2019-03-30 18:11 | NUR ---
PAGED DR. KANG TO NOTIFY HER THAT PATIENT HAS A POST VOID RESIDUAL OF 949ML. PATIENT IS COMPLAINING THAT SHE FEELS LIKE SHE IS NOT EMPTYING HER BLADDER. WAITING EXPERIMENTAL BOX TESTER BACK.
--- NOTE | 2019-03-30 18:48 | NUR ---
REPORT GIVEN TO ONCOMING NURSE, WALKING ROUNDS DONE. NO ACUTE DISTRESS NOTED. FAMILY AT BEDSIDE. CALL LIGHT WITHIN REACH. BED IN THE LOWEST POSITION.
--- NOTE | 2019-03-30 18:52 | NUR ---
DR. KANG CALLED BACK AND NOTIFIED HER OF PATIENT RETAINING URINE. PER MD PUT A MTZ CATHETER IN. ORDER PUT IN, AND NOTIFIED NIGHT NURSE.
--- NOTE | 2019-03-30 19:00 | NUR ---
patient received awake, alert, lying quietly in bed. patient c/o minimal bladder discomfort due to urinary retention. cordon to be placed per orders. ivf/iv protonix continues to infuse without difficulty. pm assessment complete. daughter noted at the bedside. patient/daughter instructed to call for assistance when needed.
[2019-03-30] MEDS: KCL 20MEQ/.9 SOD CHL 1,000 ML IV SCH (19:36)
--- NOTE | 2019-03-30 19:43 | NUR ---
16f cordon inserted at this time due to urinary retention. approx 400cc yellow cloudy urine noted. patient teaching complete re:cordon catheter. no c/o pain noted at this time.
[2019-03-31] VITALS (7 sets, daily range): BP systolic 103–118; BP diastolic 52–63
[2019-03-31] MEDS: METRONIDAZOLE 500MG/NS 100ML 100 ML IV SCH ×4 (04:00→22:00)
[2019-03-31] MEDS: PIPER-TAZ 3.375 GM 50 ML IV SCH ×4 (05:27→17:25)
--- NOTE | 2019-03-31 07:00 | NUR ---
Pt in bed. AOX4 and able to verbalize needs. Denies any pain at this time. Denies nausea. SCDs in place to bilateral lower ext.
[2019-03-31] MEDS: PANTOPRAZOL 40MG/SOD CHL 0.9% 50 ML IV SCH ×3 (09:00→20:30)
--- NOTE | 2019-03-31 09:50 | Progress Note ---
DATE: 03/31/2019 SUBJECTIVE: Ms. Correa is a 78-year-old Trin[place] female, who has history of hypertension and arthritis, came to the emergency room complaining of abdominal pain that was worse. She has been complaining of abdominal pain on and off. She was found to have gallbladder polyps. When she came with this pain that was more severe, CAT scan showed perforated sigmoid diverticulitis. So, the patient was put n.p.o., started on IV PPIs and IV antibiotics. There was a little concern about also a perforated gastroduodenal ulcer. The patient was seen by a surgeon and GI. Yesterday, she was having trouble passing the urine. She is still complaining of suprapubic discomfort, so urology consult was placed today. She had to have a Ch catheter placed yesterday because she was retaining urine. PHYSICAL EXAMINATION: GENERAL: Today, she is awake and alert. She is feeling better. VITAL SIGNS: Temperature is 96.9, blood pressure 118/54. HEART: Regular rate. LUNGS: Clear to auscultation. ABDOMEN: Soft. LABORATORY DATA: On the blood work, potassium 3.7, creatinine 0.70, glucose 65. White count 4.90, hemoglobin 10.4, hematocrit 30.4. Urine culture was negative. Abdominal and pelvic CT shows some free air in the right upper quadrant and left lung, diffuse inflammatory changes in multiple loops of the small bowel and ascending colon. ADMITTING DIAGNOSES: 1. Perforated sigmoid diverticulitis. 2. Possible perforated gastroduodenal ulcer. 3. Hypertension. 4. Hypokalemia. 5. Urinary retention. PLAN: At the present time, the patient is on clear liquid diet. She is on PPIs, IV antibiotics. We are going to get a urology consult with Dr. Ricci because she is having trouble urinating and discomfort. Urine culture came back negative. All this was discussed with the patient. All questions were answered to satisfaction. If stable, tomorrow she may be able to go home. MD REMEDIOS Joseph/YANDEL /[id number]
[2019-03-31 17:34] LABS: BILIRUBIN,URINE NEGATIVE (NEGATIVE); CLARITY,URINE CLOUDY (CLEAR); COLOR,URINE YELLOW (YELLOW); KETONES,URINE NEGATIVE (NEGATIVE); LEUKOCYTE ESTERASE ,URINE NEGATIVE (NEGATIVE); NITRITE,URINE NEGATIVE (NEGATIVE); PROTEIN,URINE DIPSTICK 2+ (NEGATIVE); URINE UROBILINOGEN 0.2 mg/dL (0.2 - 1)
[2019-03-31 17:46] LABS: BACTERIA,URINE FEW /HPF; RBC,URINE 21-50 /HPF (0-5)
--- NOTE | 2019-03-31 18:00 | NUR ---
Pt education done related to leg bag. Pt was able to correctly demonstrate how to attach leg bag. Pt denies any pain at this time. Pt tolerating GI soft diet. Spoke with family member and let her know that pt may discharged in am.
--- NOTE | 2019-03-31 18:12 | Consultation ---
DATE OF CONSULTATION: 03/31/2019 Urology Consultation REASON FOR CONSULTATION: Urinary retention. HISTORY OF PRESENT ILLNESS: Aroldo Correa is a 78-year-old woman, who has never seen a urologist. She denies incontinence, denies recurrent urine tract infections. The patient has noted over the last several weeks that she has whitish debris in her urine and has noticed some little specks of blood in her urine as well. The patient was admitted with perforated gastroesophageal organ and upon bladder scan was found to have over 900 mL in her bladder, she only voided 300 mL after that. Ch catheter was placed and urological consultation was sought. PAST MEDICAL AND SURGICAL HISTORY: 1. 5, para 5, by spontaneous vaginal delivery. 2. Hypocholesterolemia. 3. Status post bilateral cataract surgery. 4. Status post bilateral lower leg venous ligation. 5. Left breast lumpectomy that was benign. CURRENT MEDICATIONS: Please refer the MAR. ALLERGIES: NONE KNOWN. SOCIAL HISTORY: The patient smokes half a pack per day, she used to smoke a full pack per day of cigarettes. The patient has supportive family. 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 FAMILY HISTORY: Noncontributory to the active urological problems. REVIEW OF SYSTEMS: Discussed as above in history of present illness and past medical history, otherwise negative for all systems. PHYSICAL EXAMINATION: GENERAL: Very pleasant 78-year-old woman, walking around the room, in no apparent distress. VITAL SIGNS: She is currently afebrile. Vital signs are currently stable. ABDOMEN: Soft, nondistended, and is nontender without costovertebral angle tenderness. GENITOURINARY: The patient has a Ch catheter in place draining yellow urine out with some debris. Internal examination is deferred. For the remaining physical examination systems, please refer to the admission history and physical on chart. LABORATORY STUDIES: White blood cell count is 4900, which is down from the elevated 10,950, hemoglobin 10.4, platelets are normal at 178,000. The patient's creatinine is normal at 0.7. Her calcium is low at 8.3. Urinalysis significant for 11-20 rbc's, 6-10 wbc's and many bacteria. Followup urinalysis revealed greater than 50 rbc's. Urine culture was negative; however, it was not performed on the original collected specimen and may have occurred after antibiotics were given. CT scan of the abdomen and pelvis without contrast revealed no urological abnormalities, there were findings consistent with diverticulitis. ASSESSMENT: 1. Urinary retention for over 400 mL. 2. Urinary tract infection. 3. Hematuria. 4. Smoker. 5. Leukocytosis, improved. 6. Anemia. 7. Hypocalcemia. PLAN: 1. I will order urine culture and sensitivity on the current urine. 2. The patient will need to go home with Ch catheter and follow up in the office for urodynamic study. 3. Eventually, cystoscopy and retrograde pyelogram will be performed. 4. I defer the management of the diverticulitis to the general surgeon on the case and the differential diagnosis. With this kind of constellation of symptoms, a colovesical fistula could be possible. Thank you much for involving us in the care of your patient. We will be happy to follow her along with you as well as an outpatient. Carlo Ricci MD [place]/MODL /[id number] cc: Jessi Wall MD
[2019-03-31] MEDS: HYDROCODONE/APAP 5MG-325MG TAB PO PRN (18:57)
--- NOTE | 2019-03-31 20:00 | NUR ---
Received change of shift report from AM nurse. Walking rounds completed.
[2019-03-31] MEDS: KCL 20MEQ/.9 SOD CHL 1,000 ML IV SCH (22:14)
[2019-04-01] VITALS (7 sets, daily range): BP systolic 98–139; BP diastolic 51–64
--- NOTE | 2019-04-01 00:41 | NUR ---
Dr Corbin on the floor and ordered labs in the AM.
[2019-04-01] MEDS: PANTOPRAZOL 40MG/SOD CHL 0.9% 50 ML IV SCH ×4 (01:30→17:51)
[2019-04-01] MEDS: HYDROCODONE/APAP 5MG-325MG TAB PO PRN ×2 (02:41→08:39)
[2019-04-01] MEDS: METRONIDAZOLE 500MG/NS 100ML 100 ML IV SCH ×4 (03:10→22:00)
[2019-04-01] MEDS: PIPER-TAZ 3.375 GM 50 ML IV SCH ×4 (04:43→17:57)
[2019-04-01 06:22] LABS: FERRITIN 335.91 ng/mL (4.63-204.00)
[2019-04-01 07:20] LABS: FOLATE 6.6 ng/mL (7.0-15.4)
--- NOTE | 2019-04-01 07:33 | NUR ---
Pt in bed aox4 and able to verbalize needs. Dr. Ricci was here to see pt and made aware of catheter getting clogged twice last night. Received new orders fro manual irrigation and pt education on irrigation at home. Urine culture is still pending.
--- NOTE | 2019-04-01 09:00 | NUR ---
Dr. Wall here to see pt and received orders to do additional CT of abdomen and pelvis again. Pt urine is light yellow in leg bag at this time. complaining of pain to lower back.
--- NOTE | 2019-04-01 09:25 | Progress Note ---
DATE: 04/01/2019 SUBJECTIVE: Ms. Correa is a 78-year-old Vincentian lady with history of hypertension, arthritis, tobacco use, came to the emergency room complaining of abdominal pain that has been getting worse. A CAT scan showed perforated sigmoid diverticulitis and air in the right upper abdomen concerning for perforated gastroduodenal ulcer. The patient was started and was put n.p.o. and on IV PPIs and IV antibiotics. She has been seen by GI and surgeon. She complained of low abdominal pain and urinary retention. She had a Ch catheter placed and yesterday we got a milky looking stuff through the catheter. Urology evaluation was requested. A Ch catheter to stay there upon discharge. PHYSICAL EXAMINATION: GENERAL: She is awake and alert, feeling a little better. VITAL SIGNS: Temperature is 96.6, blood pressure is 139/64. HEART: Regular rate. LUNGS: Clear to auscultation. ABDOMEN: Distended and soft. LABORATORY DATA: On the blood work, potassium 3.7, creatinine is 0.70, glucose 65. White count 4.90, hemoglobin 10.4, hematocrit 30.4. The first urine culture was negative. The last abdominal and pelvic CT done shows decreased amount of free air in the abdomen, diffuse inflammatory changes in the loops of the small bowel and ascending colon. No collections or abscess. ASSESSMENT: 1. Perforated sigmoid diverticulitis. 2. Possible perforated GI ulcer. 3. Urinary retention with whitish material coming, concerning for possible colovesical fistula. 4. Hypokalemia. 5. History of hypertension. 6. Hematuria. 7. Anemia. 8. Probably urinary tract infection. PLAN: At present time is continue IV antibiotics. UA and urine culture were done yesterday, were repeated again. The patient has a Ch catheter and she is going to go home with a Ch catheter and she will have urodynamic studies as an outpatient. We went ahead and repeated CAT scan since the patient now is complaining of left-sided back pain. She is tolerating a soft diet. We are going to continue IV antibiotics and await until we have the results of the repeated CAT scan. All this was discussed with the patient. All questions were answered to satisfaction. I spent more than 35 minutes examining the patient, reviewing the x-ray, CAT scan and lab results and discussing plan of care with her. MD REMEDIOS Joseph/YANDEL /[id number]
[2019-04-01] MEDS ORDERED: DIATRIZOATE MEGL/DIATRIZOA SOD 30 ML BTL PO ONE (11:04)
--- NOTE | 2019-04-01 12:00 | NUR ---
Dr. Ha here to see pt at this time and states pt should go home on PO antibiotics when she is ready to discharge for at least a week. He is recommending augmentin.
[2019-04-01] MEDS: KCL 20MEQ/.9 SOD CHL 1,000 ML IV SCH (15:12)
--- NOTE | 2019-04-01 15:32 | Diagnostic Imaging Report ---
EXAM: CT ABDOMEN AND PELVIS IV CONTRAST DATE: 04/01/2019Time stamp on Exam: 12:48 PM INDICATION: Abdominal pain COMPARISON: 03/27/2019 TECHNIQUE: The abdomen and pelvis were scanned using a multidetector helical scanner. Coronal and sagittal reformations were obtained. Routine protocol performed. Technique modification was accomplished to maintain the lowest dose possible to the patient. IV Contrast: 100 cc of Isovue-370 Oral Contrast: Gastrografin intermixed with water Radiation Dose: Total DLP 665.41 mGy*cm Estimated effective dose: DLP x 0.015 x size factor FINDINGS: LOWER THORAX: Lingular scarring. LIVER: No masses BILIARY: The gallbladder is unremarkable. No ductal dilatation. Prominent distal common bile duct. SPLEEN: No masses PANCREAS: No masses ADRENALS: No nodules KIDNEYS: Symmetric perfusion. No enhancing masses. No hydronephrosis. GI TRACT: Sigmoid colon diverticula with pericolonic inflammation. Small focal fluid collection adjacent to the diverticula is not amenable to drainage (axial series, image 60 and coronal series, image 35-36). Thickening of the gastric antrum and duodenum appear similar. Focal air-containing structure medial to the C-loop of the duodenum likely represents a small duodenal diverticulum. VESSELS: Vascular calcification PERITONEUM/RETROPERITONEUM: Resolution of the previously described free air in the abdomen. LYMPH NODES: No lymphadenopathy REPRODUCTIVE ORGANS: Unremarkable BLADDER: There is a Ch catheter present within the bladder. SOFT TISSUES: Unremarkable BONES: Degenerative changes with disc space narrowing at L4-L5. IMPRESSION: 1. Resolution of the previously described free air in the abdomen. 2. Sigmoid diverticulitis with a small pericolonic fluid collection not amenable to drainage. Signed by: Dr. Silvio Pierson DO on 04/01/2019 3:28 PM
[2019-04-01] MEDS ORDERED: ONDANSETRON HCL 4 MG ORAL DISINTEGRATING TAB PO PRN (16:45)
--- NOTE | 2019-04-01 18:11 | NUR ---
Nutrition Screen Note RD Recommendation for Physician: -Continue current diet as ordered Plan of Care: RD following, monitoring for tolerance and adequacy Nutrition reason for involvement: LOS Primary Diagnose(s): 1. Perforated sigmoid diverticulitis. 2. Possible perforated GI ulcer. 3. Urinary retention with whitish material coming, concerning for possible colovesical fistula. PMH: hypertension, arthritis, tobacco use Ht: 59in Wt: 171lb BMI: 34.5kg/m2 IBW: 98lb RD Assessment: (04/01) Chart reviewed. Labs and meds reviewed. 78yo F, who was admitted for abdominal pain. CT abd/pel today showed sigmoid diverticulitis with a small pericolonic fluid collection not amenable to drainage. Visited pt in the room. Pt was tolerating GI soft diet. No complains of nausea or vomiting. Pt denied any chewing or swallowing difficulty. Pt has lost 10lbs (5.5% weight loss) in last 2 months. No physical sign of muscle and fat loss upon observation. Will continue to monitor and follow. Current Diet: GI soft Malnutrition Evaluation (04/01/2019) The patient does not meet criteria for a specified degree of malnutrition at this time. Will re-evaluate at follow-up as appropriate. Energy intake: <50% of estimated energy requirements for >1 month Weight loss: Pt has lost 10lbs (5.5% weight loss) in last 2 months. not meeting criteria Fat loss: None Muscle loss: None Supporting Evidence: Fluid accumulation: None Functional Status: no changes Diet Education Needs Assessment: Diet education not indicated. Nutrition Care Level: mod Signed: Kassidy Ac, MS, RD, LD
--- NOTE | 2019-04-01 19:00 | NUR ---
Pt in bed. ao4 and able to verbalize needs. Denies any pain at this time. Daughter is here and education done with daughter and pt on how to irrigate cordon catheter. Daughter was able to demonstrate how to irrigate cordon catheter.
--- NOTE | 2019-04-01 19:38 | NUR ---
Received change of shift report from am nurse. Walking rounds completed. Patient in bed denies pain at this time. Daughter at bedside. Daughter had question for day shift nurse. Patient verbalized understanding. Continue monitor.
[2019-04-02] VITALS (8 sets, daily range): BP systolic 115–153; BP diastolic 58–70
[2019-04-02] MEDS: PANTOPRAZOL 40MG/SOD CHL 0.9% 50 ML IV SCH
--- NOTE | 2019-04-02 | NUR ---
Patient AAOx3. In supine position in bed. Denies pain at this time. C/O IV pain. D/C IV x2 and restarted 22Gx2 to left FA. Patient tolerated well. Encouraged to reposition self in bed. Leg bag cordon with 300cc cloudy urine. Dr Corbin on the floor to see patient. Orders received.
[2019-04-02] MEDS: METRONIDAZOLE 500MG/NS 100ML 100 ML IV SCH ×4 (04:00→22:00)
--- NOTE | 2019-04-02 04:40 | NUR ---
Patient in bed with no c/o at this time. Continue monitor.
[2019-04-02 05:33] LABS: BASOPHILS % 0.4 % (0.0-1.0); EOSINOPHILS # (AUTO) 0.1 (0.0-0.4); EOSINOPHILS % 2.3 % (0.0-6.0); HEMATOCRIT 31.8 % (34.2-44.1); HEMOGLOBIN 10.8 g/dL (12.0-16.0); LYMPHOCYTES # (AUTO) 0.8 (1.0-3.2); LYMPHOCYTES % 15.5 % (18.0-39.1); MEAN CORPUSCULAR VOLUME 94.4 fL (81-99); MONOCYTES # (AUTO) 0.5 (0.2-0.8); MONOCYTES % 8.8 % (4.4-11.3); NEUTROPHILS # (AUTO) 3.8 (2.1-6.9); NEUTROPHILS % 72.4 % (38.7-80.0); PLATELET COUNT 221 x10e3/uL (140-360); RED BLOOD COUNT 3.37 x10e6/uL (3.6-5.1); RED CELL DISTRIBUTION WIDTH 13.1 % (11.7-14.4)
[2019-04-02 05:45] LABS: ANION GAP 7.2 mmol/L (8-16); BLOOD UREA NITROGEN 5 mg/dL (7-26); BUN/CREATININE RATIO 8 (6-25); CALCIUM 8.2 mg/dL (8.4-10.2); CARBON DIOXIDE 27 mmol/L (22-29); CHLORIDE 108 mmol/L (98-107); CREATININE, SERUM 0.61 mg/dL (0.57-1.11); EST GLOMERULAR FILTRATION RATE > 60 ML/MIN (60-); GLUCOSE 94 mg/dL (74-118); POTASSIUM 3.2 mmol/L (3.5-5.1); SODIUM 139 mmol/L (136-145)
[2019-04-02] MEDS: PIPER-TAZ 3.375 GM 50 ML IV SCH ×4 (06:00→17:15)
--- NOTE | 2019-04-02 07:00 | NUR ---
PATIENT IS AWAKE AND IN STABLE CONDITION WITH NO S/S OF RESPIRATORY DISTRESS. PATIENT DENIES PAIN. IV FLUIDS AND IV PROTONIX INFUSING. DIAPER APPLIED. MTZ INTACT AND CONNECTED TO LEG BAG. CALL LIGHT IS WITHIN REACH, PATIENT INSTRUCTED TO CALL FOR ASSISTANCE NEEDED.
[2019-04-02] MEDS: IRON-VITAMIN-MINERAL CAPSULE PO SCH ×2 (08:22→16:03)
[2019-04-02] MEDS ORDERED: POTASSIUM CHLORIDE 20 MEQ TAB CR PO NR (09:00)
[2019-04-02] MEDS ORDERED: FOLIC ACID 1 MG TAB PO SCH (09:00)
[2019-04-02] MEDS: KCL 20MEQ/.9 SOD CHL 1,000 ML IV SCH (09:06)
--- NOTE | 2019-04-02 09:27 | Discharge Summary ---
HOSPITAL COURSE: Ms. Correa is a 78-year-old Taiwanese lady with history of hypertension, arthritis, tobacco use, came to the emergency room complaining of abdominal pain that was getting worse. CAT scan showed perforated sigmoid diverticulitis and some air in the right upper quadrant abdomen concerning for perforated gastroduodenal ulcer. The patient has been seen by GI and surgeon. She received IV PPIs and IV antibiotics. At present time, she is doing better. She had an episode of urinary retention. She was seen by Dr. Ricci. She has a Ch catheter and she is going to be discharged home with a Ch catheter and p.o. antibiotics if it is okay with the consultants. PHYSICAL EXAMINATION: GENERAL: Today, she is awake and alert. VITAL SIGNS: Temperature is 98.3, blood pressure is 131/61. HEART: Regular rate. LUNGS: Clear to auscultation. ABDOMEN: Soft. LABORATORY DATA: On the blood work potassium 3.2, creatinine is 0.61, glucose is 94. White count 5.24, hemoglobin 10.8, hematocrit is 31.8. We repeated CAT scan yesterday of the abdomen and pelvis that shows a resolution of the previously described free air in the abdomen and sigmoid diverticulitis with a small pericolonic fluid collection not amenable for drainage. DISCHARGE DIAGNOSES: 1. Perforated sigmoid diverticulitis. 2. Possible perforated GI ulcer. 3. Urinary retention, status post Ch catheter placement. Some concern for possible colovesical fistula. 4. Hypokalemia. 5. Hypertension. 6. Hematuria. 7. Anemia. PLAN: At present time is to discharge the patient home on Levaquin p.o. daily for 10 days, Flagyl 500 mg p.o. q.8 hours also for 10 days, Protonix p.o. daily. She is to continue her other home medications. She is going to be discharged with a Ch catheter. She needs to be on a soft diet. She has an appointment with Dr. Ricci next week. Once diverting colitis gets better, she needs EGD and colonoscopy, so she needs follow up with Dr. Sean Corbin. Please see home medication reconciliation list. All this was discussed with the patient. All questions were answered to satisfaction. She is to call me or come back to the emergency room if any fever, vomiting, recurrent abdominal pain. The patient understood and agreed. All questions were answered to satisfaction. MD REMEDIOS Joseph/YANDEL /[id number]
[2019-04-02] MEDS ORDERED: PANTOPRAZOLE SO40 MG PO (11:55)
[2019-04-02] MEDS ORDERED: LEVAQUIN500 MG PO (11:56)
[2019-04-02] MEDS ORDERED: FLAGYL250 MG PO (11:56)
[2019-04-02] MEDS: HYDROCODONE/APAP 5MG-325MG TAB PO PRN ×2 (13:12→20:08)
--- NOTE | 2019-04-02 17:41 | NUR ---
SPOKE WITH DR. BEARDEN- INFORMED DR. BEARDEN THAT RN WAS TO INFORM DR. KANG IF PATIENT RECEIVED CLEARANCE FROM DR. GARNER AND PATIENT WILL D/C HOME THIS EVENING ONCE HER RIDE ARRIVES TO THE HOSPITAL.
--- NOTE | 2019-04-02 19:01 | NUR ---
DEMONSTRATED IRRIGATION TO THE PATIENT AND HER DAUGHTER FOR DISCHARGE TEACHING. PATIENT AND DAUGHTER ACKNOWLEDGE UNDERSTANDING.
--- NOTE | 2019-04-02 19:22 | NUR ---
PATIENT RESTING IN BED- IN STABLE CONDITION WITH NO S/S OF RESPIRATORY DISTRESS. NO PAIN VOICED. MTZ LEG BAG ATTACHED AND DRAINING. DAUGHTER PRESENT IN ROOM. CALL LIGHT IS WITHIN REACH, PATIENT INSTRUCTED TO CALL FOR ASSISTANCE NEEDED. BEDSIDE SHIFT REPORT GIVEN TO ONCOMING NURSE.
--- NOTE | 2019-04-02 20:08 | NUR ---
PATIENT C/O SEVERE PAIN TO THE LOWER ABDOMEN, MEDICATED WITH NORCO 1TAB ORDERED. IRRIGATED THE MTZ CATHETER SEVERAL TIMES BUT NO OUT PUT NOTED AND PATIENT C/O WANTING TO URINATE. CHARGE NURSE NOTIFY TO TRY TO IRRIGATE THE CATHETER TO SEE IF THERE'S ANY OUTPUT. WILL MONITOR CLOSELY AND NOTIFY THE PHYSICIAN OF ANY DISCOMFORT.
--- NOTE | 2019-04-02 21:15 | NUR ---
CHARGE NURSE IRRIGATED THE MTZ CATHETER SEVERAL TIMES STILL NO OUT PUT AND THE PATIENT IS MOANING IN PAIN. MTZ CATHETER REMOVED TO REINSERT ANOTHER CATHETER. SHE STATED "I WANT TO SIT ON THE TOILET." SHE VOID 500ML OF URINE WITH THICK BROWN CLOTS. CALL AND SPOKE WITH DR WOODS REGARDING THE PATIENT'S MTZ CATHETER, MD ORDER TO REINSERT A 20FR CATHETER AND DISCHARGE THE PATIENT TO HOME TONIGHT.
--- NOTE | 2019-04-02 23:10 | NUR ---
PATIENT IS DISCHARGED TO HOME; DISCHARGED INSTRUCTIONS, PRESCRIPTION AND F/U GIVEN TO THE PATIENT AND HER DAUGHTER, THEY VERBALIZED UNDERSTANDING. 20FR MTZ CATHETER WAS INSERTED PER MD ORDER. 400ML OF MILKY URINE COLOR NOTED UPON INSERTION OF CATHETER. LEG BAG GIVEN WITH INSTRUCTION ON HOW TO IRRIGATE THE MTZ CATHETER TWICE DAILY AND NEEDED WELL HOW TO EMPTY THE MTZ BAG. VITAL SIGNS STABLE AT DISCHARGED, PATIENT LEFT UNIT PER WHEELCHAIR IN STABLE CONDITION.
== END 2019-04-02 23:10 | disposition home or self-care (01) | DRG 871 ==
LOC: ER 22:04 → ERHOLD 03-27 03:04 → IMCU 03-27 04:41 → MED/SURG3 03-29 11:00
PROVIDERS: ADMIT Internal Medicine; ATTEND Internal Medicine
DX: A41.9 Sepsis, unspecified organism (principal); K63.1 Perforation of intestine (nontraumatic); K57.92 Diverticulitis of intestine, part unspecified, without perforation or abscess without bleeding; N39.0 Urinary tract infection, site not specified; I10 Essential (primary) hypertension; D64.9 Anemia, unspecified; R31.9 Hematuria, unspecified; E87.6 Hypokalemia; R33.9 Retention of urine, unspecified; E78.00 Pure hypercholesterolemia, unspecified
CPT/HCPCS: 36415; 71045; 74022; 74176; 74177; 80048; 80053; 81001; 82150; 82270; 82550; 82553; 82607; 82728; 82746; 83540; 83605; 83690; 83735; 84466; 84484; 85025; 85045; 85610; 85730; 87086; 93005; 96361; 99284; J0500; J2543; J7030; Q9967

== ENCOUNTER → 2019-04-23 | Outpatient (CLI) | payer MEDICARE ==
[~2019-04-23] MED LIST: ELIQUIS PO; FLAGYL250 MG PO; FLOMAX0.4 MG PO; IOPAMIDOL 370 MG/ML 200 ML INFUS..BTL INJ ONE; LEVAQUIN500 MG PO; LOSARTAN POTASS25 MG PO; METOPROLOL PO; PANTOPRAZOLE SO40 MG PO; SODIUM CHLORIDE 0.9% 50ML 50 ML ONE
[2019-04-23 12:34] LABS: BLOOD UREA NITROGEN 12 mg/dL (7-26); BUN/CREATININE RATIO 14 (6-25); CREATININE, SERUM 0.83 mg/dL (0.57-1.11); EST GLOMERULAR FILTRATION RATE > 60 ML/MIN (60-)
--- NOTE | 2019-04-23 14:00 | Diagnostic Imaging Report ---
PROCEDURE: CT ABDOMEN AND PELVIS WITH CONTRAST TECHNIQUE: The abdomen and pelvis were scanned utilizing a multidetector helical scanner from the diaphragm to the lesser trochanter after the IV administration of 100 cc Isovue 370. Delayed, urographic phase images were also obtained. Coronal and sagittal multiplanar reformations were obtained. COMPARISON: CT abdomen and pelvis with contrast 04/01/2019. INDICATIONS: DEBRI IN URINE. R/O COLOVESICAL/VESICOVAGINAL FISTULA FINDINGS: LOWER THORAX: Linear opacity in the lingula and bilateral lower lobes which may reflect scar or subsegmental atelectasis. HEPATOBILIARY: No focal hepatic lesion or intrahepatic biliary ductal dilatation. 9 mm radiopaque calculus or polypoid lesion is again noted within the gallbladder. No pericholecystic inflammation. SPLEEN: No splenomegaly. PANCREAS: No focal masses or ductal dilatation. ADRENALS: Bilateral adrenal fullness without discrete nodule. KIDNEYS/URETERS: No hydronephrosis, calculi or gross mass lesion. Subcentimeter hypoattenuating lesion in the left kidney is too small to further characterize but likely represent a small cyst. PELVIC ORGANS/BLADDER: The Ch catheter has been removed. The urinary bladder is intact. Excretory phase images show no filling defects within the ureters or urinary bladder. No egress of contrast material into the colon or vagina is appreciated. The uterus is neutral in position with prominent gonadal veins. No adnexal mass. PERITONEUM / RETROPERITONEUM: No ascites. No pneumoperitoneum. LYMPH NODES: No pelvic sidewall, retroperitoneal, or mesenteric lymphadenopathy. VESSELS: The atherosclerotic calcification of the abdominal aorta, major branch vessels, and iliac arterial systems without aneurysmal dilatation. Portal vein, splenic vein, and central superior mesenteric vein are patent. GI TRACT: The large bowel is notable for innumerable sigmoid diverticula without findings of diverticulitis. Small focus of soft tissue stranding deep to the left rectus muscle represents postinflammatory changes with interval resolution of small abscess seen on 03/22/2019 scanned. No evidence of active disease of inflammatory change. Appendix is normal. Stomach is collapsed with prominent rugal folds. Unchanged duodenal diverticulum. BONES AND SOFT TISSUES: No focal soft tissue abnormalities. No osseous destructive lesion. Multilevel degenerative disc change and facet arthropathy of the lumbar spine. IMPRESSION: No colovesical or vesicovaginal fistula is identified. If there is strong clinical concern, a contrast enema or cystography may be of benefit for further evaluation. Interval resolution of sigmoid diverticulitis and small diverticular abscess. Unchanged gallstone or small gallbladder polyp. Atherosclerotic vascular disease. Dictated by: Dung Vera M.D. on 04/23/2019 at 14:03 Electronically approved by: Dung Vera M.D. on 04/23/2019 at 14:03
== END ==
LOC: CT 11:22
PROVIDERS: ATTEND Urology
DX: R33.9 Retention of urine, unspecified (principal); R31.0 Gross hematuria
CPT/HCPCS: 36415; 74177; 82565; 84520; Q9967

== ENCOUNTER → 2019-06-11 | Day surgery (SDC) | payer MEDICARE ==
[2019-04-23 11:08] LABS: BASOPHILS % 0.4 % (0.0-1.0); EOSINOPHILS # (AUTO) 0.1 (0.0-0.4); EOSINOPHILS % 2.6 % (0.0-6.0); HEMATOCRIT 36.7 % (34.2-44.1); LYMPHOCYTES # (AUTO) 0.7 (1.0-3.2); LYMPHOCYTES % 30.8 % (18.0-39.1); MEAN CORPUSCULAR HEMOGLOBIN 32.7 pg (28-32); MEAN CORPUSCULAR HGB CONC 32.7 g/dL (31-35); MONOCYTES # (AUTO) 0.3 (0.2-0.8); MONOCYTES % 10.7 % (4.4-11.3); NEUTROPHILS # (AUTO) 1.3 (2.1-6.9); NEUTROPHILS % 55.1 % (38.7-80.0); PLATELET COUNT 197 x10e3/uL (140-360); RED BLOOD COUNT 3.67 x10e6/uL (3.6-5.1); RED CELL DISTRIBUTION WIDTH 14.3 % (11.7-14.4)
--- NOTE | 2019-04-23 11:24 | Diagnostic Imaging Report ---
EXAMINATION: CHEST 2 VIEWS INDICATION: Preoperative COMPARISON: Chest radiograph of 03/27/2019 FINDINGS: TUBES and LINES: None. LUNGS: The lung volumes are normal. No focal consolidation or pulmonary edema. PLEURA: No pleural effusion or pneumothorax. HEART AND MEDIASTINUM: The cardiomediastinal silhouette is normal in size and contour. BONES AND SOFT TISSUES: No acute fracture or dislocation. UPPER ABDOMEN: No free air under the diaphragm. IMPRESSION: No focal pneumonia or pulmonary edema. Signed by: Anais Proctor MD on 04/23/2019 11:21 AM
[~2019-06-11] MED LIST changes: +B&O 60MG R/S 60 MG SUPP PR ONE; +CEFTRIAXONE SOD 1 GM/NS 50 ML 50 ML IV ONE; +DEXAMETHASONE SOD PHOS INJ 4 MG/ML VIAL ONE; -IOPAMIDOL 370 MG/ML 200 ML INFUS..BTL INJ ONE; +IOPAMIDOL 610MG/1ML 300 MG/ML VIAL IV ONE; +LIDOCAINE HCL 2% LOCAL INJ 5 ML SDV VIAL INJ ONE; +ONDANSETRON HCL INJ 2MG/ML 2ML 2 MG/ML VIAL ONE; +PROPOFOL IV EMULSION 10 MG/ML 20 ML VIAL ONE; +SEVOFLURANE INHAL SOLN 250 ML PEN BTL ONE; -SODIUM CHLORIDE 0.9% 50ML 50 ML ONE
[2019-06-11 09:47] LABS: BASOPHILS % 1.5 % (0.0-1.0); EOSINOPHILS # (AUTO) 0.1 (0.0-0.4); EOSINOPHILS % 2.7 % (0.0-6.0); HEMATOCRIT 39.4 % (34.2-44.1); HEMOGLOBIN 12.9 g/dL (12.0-16.0); LYMPHOCYTES # (AUTO) 0.5 (1.0-3.2); LYMPHOCYTES % 20.2 % (18.0-39.1); MEAN CORPUSCULAR HEMOGLOBIN 32.6 pg (28-32); MEAN CORPUSCULAR HGB CONC 32.7 g/dL (31-35); MEAN CORPUSCULAR VOLUME 99.5 fL (81-99); MONOCYTES # (AUTO) 0.3 (0.2-0.8); MONOCYTES % 11.8 % (4.4-11.3); NEUTROPHILS # (AUTO) 1.7 (2.1-6.9); NEUTROPHILS % 63.4 % (38.7-80.0); PLATELET COUNT 121 x10e3/uL (140-360); RED BLOOD COUNT 3.96 x10e6/uL (3.6-5.1); RED CELL DISTRIBUTION WIDTH 13.8 % (11.7-14.4)
[2019-06-11 12:34] LABS: EOSINOPHILS % (MANUAL) 3 % (0-7); LYMPHOCYTES % (MANUAL) 20 % (19-48); MONOCYTES % (MANUAL) 21 % (3.4-9.0); NEUTROPHILS % (MANUAL) 55 % (40-74); PLATELET ESTIMATE MODERATELY DECREASED; RBC MORPHOLOGY COMMENT NORMAL
[2019-06-11 12:49] VITALS: BP 116/76
--- NOTE | 2019-07-20 07:36 | Operative Report ---
DATE OF PROCEDURE: 06/11/2019 SURGEON: Carlo Ricci MD PREOPERATIVE DIAGNOSIS: Urinary tract infections. POSTOPERATIVE DIAGNOSES: 1. Urinary tract infections. 2. Grade 2 cystocele. 3. Grade 2 rectocele. 4. Atrophic (senile) vaginitis. 5. Urethral caruncle. 6. Urethral hypermobility. OPERATIONS PERFORMED: 1. Cystourethroscopy with bilateral ureteral catheterization and retrograde ureteropyelography (separate procedure performed for the urinary tract infections). 2. Interpretation of retrograde ureteropyelography. 3. Supervision of fluoroscopy, no radiologist present. 4. Pelvic examination under anesthesia. ANESTHESIA: General. COMPLICATIONS: None. CLINICAL SUMMARY: Aroldo Correa is an 79-year-old woman with recurrent infections. She is brought for the above procedures. She has a history of urinary retention and has responded to Flomax. She is aware of the risks of bleeding, infection, injury to adjacent structures, need for additional procedures, and elected to proceed. OPERATIVE PROCEDURE IN DETAIL: Informed consent was verified. Aroldo Correa was properly identified and taken to the operating room, placed on the cystoscopy table in supine position. Anesthesia was uneventfully begun. The patient was then carefully and gently repositioned in the dorsal lithotomy position with all pressure points well padded. Her genitalia were prepared and draped in the usual sterile fashion. The cystoscope sheath with obturator in place was atraumatically inserted into the patient's urethra and bladder was drained. Panendoscopy revealed no suspicious mucosal lesions, no tumors, and no stones. Small diverticula were noted. An 8-German catheter was used to cannulate each ureter and retrograde ureteral pyelograms were performed. Interpretation of retrograde ureteropyelography contrast was instilled in retrograde fashion bilaterally. There were no tumors, no stones, and no diverticula. Unobstructed drainage was observed bilaterally fluoroscopically. The patient's bladder was drained. The cystoscope was withdrawn. Pelvic examination revealed a grade 2 cystocele, grade 2 rectocele. There was urethral hypermobility and atrophic vaginitis and urethral caruncle. No abnormal palpable pelvic masses could be appreciated. There were no obvious mucosal lesions. The patient was then uneventfully reversed from anesthesia and taken to the recovery room in stable condition. Explicit postop instructions were given. We will plan on following the patient up in the office at which point in time, we will plan on performing uroflowmetry and bladder ultrasonography. MD JOSEPHINE Crawley/YANDEL /[id number]
== END | disposition home or self-care (01) ==
LOC: OR 07:59
PROVIDERS: ATTEND Urology
DX: N39.0 Urinary tract infection, site not specified (principal); R33.9 Retention of urine, unspecified; R31.29 Other microscopic hematuria; R31.0 Gross hematuria; F17.200 Nicotine dependence, unspecified, uncomplicated; R35.1 Nocturia; R39.12 Poor urinary stream; R39.14 Feeling of incomplete bladder emptying; N81.89 Other female genital prolapse; N81.6 Rectocele; N36.41 Hypermobility of urethra; N95.2 Postmenopausal atrophic vaginitis; Z01.810 Encounter for preprocedural cardiovascular examination; Z01.812 Encounter for preprocedural laboratory examination; Z01.811 Encounter for preprocedural respiratory examination; I10 Essential (primary) hypertension; N81.10 Cystocele, unspecified; N36.2 Urethral caruncle
CPT/HCPCS: 36415 ×2; 52005; 71046; 74420; 85025 ×2; 93005 ×2; C1758; J0696; J1100; J2001; J2405; J2704; Q9967

== ENCOUNTER → 2020-07-04 | Outpatient (CLI) | payer MEDICARE ==
[~2020-07-04] MED LIST changes: -B&O 60MG R/S 60 MG SUPP PR ONE; -CEFTRIAXONE SOD 1 GM/NS 50 ML 50 ML IV ONE; -DEXAMETHASONE SOD PHOS INJ 4 MG/ML VIAL ONE; -IOPAMIDOL 610MG/1ML 300 MG/ML VIAL IV ONE; -LIDOCAINE HCL 2% LOCAL INJ 5 ML SDV VIAL INJ ONE; -ONDANSETRON HCL INJ 2MG/ML 2ML 2 MG/ML VIAL ONE; -PROPOFOL IV EMULSION 10 MG/ML 20 ML VIAL ONE; -SEVOFLURANE INHAL SOLN 250 ML PEN BTL ONE
--- NOTE | 2020-07-04 16:21 | Diagnostic Imaging Report ---
EXAM: Renal Ultrasound INDICATION: ^GROSS HEMATURIA COMPARISON: CT dated 04/01/2019 TECHNIQUE: Transverse and longitudinal images of the kidneys and bladder were obtained. FINDINGS: Right Kidney: Length: 8.8 cm Appearance: Normal echogenicity. Collecting system: No hydronephrosis Stones: None Cyst/Mass: None Left Kidney: Length: 8.9 cm Appearance: Normal echogenicity. Collecting system: No hydronephrosis Stones: None Cyst/Mass: None Bladder: There are bladder is unremarkable. Bilateral ureteral jets are visualized. IMPRESSION: Negative for hydronephrosis or calculus. Signed by: Champ Castellon MD on 07/04/2020 4:17 PM
== END ==
LOC: US 14:35
PROVIDERS: ATTEND Urology
DX: R31.0 Gross hematuria (principal); N39.0 Urinary tract infection, site not specified
CPT/HCPCS: 76770; 76857